=== PATIENT | male | born 1965 | race Caucasian/White ===

== ENCOUNTER 2024-02-19 06:02 | Day surgery (SDC) | payer OTHER, SELFPAY ==
--- NOTE | 2024-01-29 12:14 | HPS.HSE ---
Family Physician
-
Family Physician: NOT KNOW UNKNOWN - PT DOES
Chief Complaint
-
Typical Aflutter, history Afib-proposed EP study with ablation
History of Present Illness
58yo male with a CHADs VASC score of 1 due to hypertension. He is currently maintained on Flecainide and metoprolol and anticoagulated with Eliquis. There is a questionable history of atrial fibrillation, however, non-documented on tracing. He has
confirmed typical a flutter, which is persistent and symptomatic. His symptoms include palpitations, shortness of breath and fatigue.
He wishes to pursue EP study with ablation to hopefully eradicate his arrhythmia. He currently denies chest pain, shortness breath, fever, nausea, vomit, or diarrhea present.
Medical History
Past Medical History
Past Medical History: Reports Other (see below)
Additional Past Medical History:
1. Typical Aflutter
2. Questionable history atrial fibrillation
3. Obesity BMI 38.0
4. HTN
6. Rectosigmoid Cancer s/p resection
Past Surgical History: Reports Other (see below)
Additional Past Surgical History:
Rectosigmoid ursqwzfve-jxgiocagmz-vtxfbkhha w/ revision
Nephrostomy tube
Penile implant
Lap-nancy
Appdx
Social History
Tobacco: Non-smoker
Alcohol: Occasional
Family History
Family History: Not pertinent
Allergies / Home Medications
Allergies reflects when Allergies were last updated in [facility].
Home Medications with original date entered in [facility]
Allergy/Medication List:
ALLERGY
Adhesive tape
NKDA
MEDICATIONS
Eliquis 5mg bid
Flecainide 50mg Q12h
Losartan 50mg daily
Metoprolol succinate 50mg daily
Review of Systems
-
A 12 point ROS was completed and negative except as noted: Yes
Physical Exam
Physical Exam
General: Well Developed and Well Nourished
HEENT: NormoCephalic and Anicteric
Respiratory: Clear
Cardiac: Irregular Rhythm (regularly irregular)
GI: Soft, Non Tender and Normal Bowel Sounds
Musculoskeletal: Other (MS strength = b/l)
Skin: Warm and Dry
Neuro: AO x 3, No Motor Deficits and Nonfocal/grossly intact
Impression/Plan
-
IMPRESSION/PLAN:
Typical aflutter, questionable history of Afib-EP study with ablation. Bnefits and risks discussed.
[2024-01-29 12:48] VITALS: BMI 38.0
[2024-01-29 13:16] LABS: ALT (SGPT) 21 U/L (0-50); AST (SGOT) 19 U/L (17-59); Albumin 4.3 g/dl (3.5-5.0); Alkaline Phosphatase 79 U/L (38-126); Blood Urea Nitrogen 24 mg/dl (9-20); Calcium 9.8 mg/dl (8.4-10.2); Carbon Dioxide 20 mmol/L (22-30); Chloride 106 mmol/L (98-107); Estimated Creatinine Clearance 77 ml/min; Glucose 117 mg/dl (70-99); Magnesium 1.7 mg/dl (1.6-2.3); Potassium 4.8 mmol/L (3.5-5.1); Sodium 137 mmol/L (135-145); Total Bilirubin 0.6 mg/dl (0.2-1.3); Total Protein 7.7 g/dl (6.3-8.2); eGFR 58.26
[2024-01-29 13:29] LABS: % Basophils 0.5 % (0-2); % Eosinophils 1.7 % (0-6); % Immature Granulocytes 0.3 % (0-0.5); % Lymphocytes 23.2 % (20.5-51.1); % Neutrophils 66.3 % (42.2-75.2); Absolute Basophils 0.1 10^3/uL (0-0.2); Absolute Eosinophils 0.2 10^3/uL (0-0.7); Absolute Lymphocytes 2.2 10^3/uL (1.2-3.4); Absolute Monocytes 0.8 10^3/uL (0.1-0.6); Absolute Neutrophils 6.2 10^3/uL (1.4-6.5); Hematocrit 42.5 % (39.0-52.0); Hemoglobin 15.2 g/dL (13.0-18.0); Mean Corp Hgb Conc. 35.8 g/dL (33.0-37.0); Mean Corpuscular Hgb 31.4 pg (27.0-31.0); Mean Corpuscular Volume 87.8 fL (80.0-94.0); Mean Platelet Volume 8.3 fL (7.4-10.4); Nucleated Red Blood Cells % 0 % (-); Platelet Count 314 10^3/uL (130-400); Red Blood Cell Count 4.84 10^6/uL (4.70-6.10); Red Cell Dist. Width 13.8 % (11.5-14.5); White Blood Cell Count 9.4 10^3/uL (4.8-10.8)
[2024-01-29 13:32] LABS: INR 1.16; PT 14.6 Sec (11.4-14.6)
[2024-02-19] VITALS (14 sets, daily range): BP systolic 135–160; BP diastolic 84–128; BMI 36.4
--- NOTE | 2024-02-19 07:55 | ITS.CL.ABL ---
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
Ablation
Procedure Report:
Primary Policeman: Iron Brandt MD
Procedure Date: 02/19/2024
Procedure
Electrophysiology Study, with RA, CS pacing and recording
Radiofrequency Ablation of Counterclockwise Cavotricuspid Isthmus-dependent Right Atrial Flutter
Three-dimensional Electroanatomic Mapping and Navigation
Patient History
See H&P for complete details
Patient is a rectosigmoid cancer status post ileostomy with colostomy reversal, nephrostomy tubes with corrective surgery, hypertension, symptomatic paroxysmal likely persistent typical atrial flutter. Recurrence on flecainide.
Method
After informed consent was obtained, the patient was brought to the EP lab in a post-absorptive, non-sedated state. A peripheral IV was in place. Continuous electrocardiography, blood pressure and pulse oximetry monitoring were initiated and
cardioversion / defibrillator patch electrodes were positioned on the chest in an anterior-posterior orientation. Sedation was administered via the anesthesia services. A time-out was called. Local anesthesia was administered at the right and left
femoral vein access sites. Vascular access was achieved using modified Seldinger technique, and 3 sheaths were placed.
The patient entered the room in atrial flutter. A multipolar catheter were advanced to the coronary sinus. A mapping / ablation catheter was used to record and pace. Intracardiac ultrasound (ICE) was utilized for structural assessment and
monitoring. Tachycardia was characterized by activation patterns in the CS catheters. Entrainment maneuvers established cavotricuspid isthmus-dependence.
Three-dimensional electroanatomic mapping was utilized. Catheter ablation in the right atrium was performed as described below. The patient�s atrial flutter terminated during ablation. Ablation continued until a line was complete from the
tricuspid valve annulus to the IVC-RA junction. Clockwise and counterclockwise trans-isthmus times were determined, and RA activation patterns confirmed bidirectional block. Interval measurements in NSR were made. A waiting period was observed,
after which the procedure was concluded.
At the end of the procedure, all catheters and sheaths were removed, hemostasis was assured in the standard fashion with [id number] stitch and manual pressure for both groins, and the patient was taken to the recovery area in stable condition.
Baseline Intervals:
Rhythm: Atrial flutter
QRS: 97 ms
QT: 315 ms
QTc: 434 ms
A-A: 260 ms (TCL)
R-R: 526 ms
Post-Procedure Intervals:
IA: 184 ms
QRS: 101 ms
QT: 358 ms
QTc: 410 ms
A-A: 764 ms
R-R: 764 ms
AVWB: 370 ms
AVNERP: 600/280 ms
No arrhythmia was inducible post ablation
Arrhythmia Summary
#1 - Counterclockwise Cavotricuspid Isthmus-dependent Right Atrial Flutter
� Present at study outset
� Stable Atrial CL = 260 ms
� Surface flutter wave morphology: Negative in the inferior leads and positive in V1
� Right to left activation in CS
� Cycle length contained with in the RA on electroanatomic mapping
� Pacing from the isthmus resulted in entrainment (with concealment) with PPI=TCL.
These finding established the diagnosis of isthmus-dependent, counterclockwise atrial flutter.
Mapping and Ablation
Utilizing electroanatomic three-dimensional navigation, a 3.5 mm tip Tubetttica SE irrigated ablation catheter was advanced to the right atrium with the assistance of an11.5 Fr Agilis steerable long sheath. An electroanatomic three-dimensional map
of the right atrium was constructed, with careful attention to anatomic landmarks, including the coronary sinus, IVC-RA and SVC-RA junction, tricuspid valve annulus, and region of the His bundle electrogram.
An ablation line was created from the tricuspid annulus to the IVC in the 6:00 position (TANZANIAN clock). Power was titrated between 30 and 40 Pena. The patient�s atrial flutter terminated during ablation, with resumption of NSR. The line was
completed during CS pacing, and bidirectional block was achieved. The ablation line was mapped to ensure widely spaced double potentials, and after a 20 minute waiting period, bidirectional block persisted.
Estimated Blood Loss
<10 mL
Fluoroscopy Time 1.5
Radiation Dose 8.54 mGy
DAP 1.05
Complications
None
Conclusions
1. Typical, counterclockwise atrial flutter. Isthmus-dependence was established with entrainment.
2. Successful ablation of the cavotricuspid isthmus with bidirectional block.
Recommendations
- Anticipate discharge home today
- Bedrest with straight leg precautions for four hours
- Resume anticoagulation tonight if patient/groins stable
- Continue remaining home medications as indicated
- Follow-up in clinic as scheduled
- Continue flecainide and Eliquis; reassess at 3 months
Mk Rodriguez, DO
Clinical Cardiac Electrophysiology
cc: Iron Brandt MD, May Paula DO
== END 2024-02-19 15:30 | disposition home or self-care (01) ==
LOC: CATH 06:02
PROVIDERS: ATTENDING PHYSICIAN Internal Medicine Cardiovascular Disease; FAMILY PHYSICIAN Family Medicine; OTHER PHYSICIAN Internal Medicine Cardiovascular Disease
DX: I48.3 Typical atrial flutter (principal); I10 Essential (primary) hypertension; Z79.899 Other long term (current) drug therapy; Z79.01 Long term (current) use of anticoagulants; E66.9 Obesity, unspecified; Z68.38 Body mass index [BMI] 38.0-38.9, adult; Z85.048 Personal history of other malignant neoplasm of rectum, rectosigmoid junction, and anus; I48.91 Unspecified atrial fibrillation
CPT/HCPCS: C1894; C1766; C2630; C1759; 36415; 75572; 76937; 80053; 83735; 85025; 85610; 86850; 86900; 86901; 93005; 93653; Q9967